=== PATIENT | male | born 1940 | race Caucasian/White ===

== ENCOUNTER 2019-10-18 07:30 | Day surgery (SDC) | payer MEDICARE, OTHER ==
--- NOTE | 2019-10-17 18:03 | HP ---
HISTORY AND PHYSICAL DATE OF SURGERY: 10/18/2019 Aston Colmenares is a 79-year-old patient seen with progressive right shoulder pain. We discussed options for treatment. He elected to proceed with arthroscopy. Consent was obtained. PAST MEDICAL HISTORY: Noncontributory. PAST SURGICAL HISTORY: Noncontributory. DAILY MEDICATIONS: None. ALLERGIES: NONE REPORTED. SOCIAL HISTORY: Denies current tobacco use. PHYSICAL EVALUATION OF THE RIGHT SHOULDER: Flexion 150 degrees, abduction 140 degrees. External rotation is 30 degrees with pain and weakness. There is tenderness along the anterolateral acromion and rotator cuff insertion site. Impingement sign is positive at 90 degrees. Drop-arm sign is positive. Distal neurovascular exam is intact. RIGHT SHOULDER RADIOGRAPHS: Right shoulder radiographs revealed a type 2 anterior acromion as well as acromioclavicular joint osteoarthritis. An MRI of the right shoulder revealed a massive retracted rotator cuff tendon tear as well as acromioclavicular joint osteoarthritis. IMPRESSION: 1. Right shoulder impingement with rotator cuff tear. 2. Right shoulder acromioclavicular joint osteoarthritis. PLAN: Right shoulder arthroscopy with subacromial decompression, arthroscopic rotator cuff repair, Nicholas procedure and debridement. MMODL / IJN: [id number] /
[~2019-10-18 07:30] MED LIST: DEXAMETHASONE SOD PHOSPHATE 10 MG/ML 1 ML VIAL IV ONE; HYDROmorphone 0.5 MG/0.5 ML SYRINGE IVP PRN; LIDOCAINE 1% 20 ML VIAL (10MG/ML) FOR IV START INTRADERMA PRN; MIDAZOLAM 2 MG/2 ML VIAL IV PRN; ONDANSETRON 4 MG/2 ML VIAL IVP ONE; fentaNYL (PF) 50 MCG/ML 2 ML AMP IVP PRN
[2019-10-18] MEDS: LACTATED RINGERS 1,000 ML IV SCH ×2 (07:51→09:24)
[2019-10-18 08:13] VITALS: TEMP 97.1
[2019-10-18 08:33] LABS: Basophils % (A) 0 %; Eosinophils # (A) 0.2 k/uL (0-0.7); Eosinophils % (A) 4 %; HCT 44.3 % (39.0-53.0); HGB 15.1 gm/dL (13.0-17.5); Lymphocytes % (A) 39 %; MCH 30.3 pg (25.0-35.0); MCHC 34.2 g/dL (31.0-37.0); MCV 88.8 fL (80.0-100.0); Mean Platelet Volume 6.9; Monocytes # (A) 0.4 k/uL (0-1.0); Monocytes % (A) 7 %; Neutrophils # (A) 2.5 k/uL (1.3-7.7); Neutrophils % (A) 47 %; Platelet Count 236 k/uL (150-450); RBC 4.99 m/uL (4.30-5.90); RDW 13.2 % (11.5-15.5); WBC 5.3 k/uL (3.8-10.6)
--- NOTE | 2019-10-18 08:42 | P.ANPRN ---
Procedure Note - Anesthesia - Nerve Block Performed Right Interscalene Single Time Out Performed: Yes Date of Procedure: 10/18/19 Procedure Start Time: Procedure Stop Time: Location of Patient: PreOp Indication: Acute Post-Operative Pain, Requested by Surgeon Sedation Type: Sedate with meaningful contact maintained Preparation: Sterile Prep Position: Supine Needle Types: Pajunk Needle Gauge: 21 Ultrasound used to visualize needle placement: Yes Ultrasound used to observe medication spread: Yes Blood Aspirated: No Pain Paresthesia on Injection Noted: No Resistance on Injection: Normal Image Stored and Saved: Yes Events: Uneventful and Well Tolerated (ropi .5% 30cc plus dexamethasone 4mg)
[2019-10-18] MEDS ORDERED: DEXAMETHASONE SOD PHOSPHATE 4 MG/ML 1 ML VIAL ONE (09:17)
[2019-10-18] MEDS ORDERED: LIDOCAINE 1% INJ 10MG/ML (20 ML MDV) ONE (09:17)
[2019-10-18] MEDS ORDERED: PROPOFOL 10 MG/ML 20 ML VIAL IV ONE (09:17)
[2019-10-18] MEDS ORDERED: ROPIVACAINE 5 MG/ML 30 ML VIAL ONE (09:17)
[2019-10-18] MEDS ORDERED: fentaNYL (PF) 50 MCG/ML 2 ML AMP ONE (09:17)
[2019-10-18] MEDS ORDERED: MIDAZOLAM 2 MG/2 ML VIAL ONE (09:17)
[2019-10-18] MEDS ORDERED: SUCCINYLCHOLINE CHLORIDE 100 MG/5 ML SYR IV ONE (09:17)
--- NOTE | 2019-10-18 11:49 | P.OP ---
Date of Procedure: 10/18/19 Preoperative Diagnosis: Right shoulder impingement Postoperative Diagnosis: 1. Right shoulder massive retracted rotator cuff tear 2. Right shoulder impingement 3. Right shoulder acromioclavicular joint osteoarthritis Procedure(s) Performed: 1. Right shoulder arthroscopic rotator cuff repair 2. Right shoulder arthroscopic subacromial decompression 3. Right shoulder arthroscopic Nicholas procedure Implants: 34.75 Arthrex swivel lock anchors Anesthesia: GETA, regional (Interscalene block) Surgeon: Stephan Arreola Coil Winder Repair #1: Gómez Hurd Estimated Blood Loss (ml): 11 Pathology: none sent Disposition: PACU Indications for Procedure: 79-year-old patient seen with progressive right shoulder pain. After treatment options were discussed, he elected to proceed with arthroscopy. Operative Findings: See description of procedure Description of Procedure: Patient underwent an interscalene block by department of anesthesia for postoperative pain management. The patient was then taken to the operative suite. The patient underwent a general anesthetic by the department of anesthesia. The patient was placed into a lateral position and secured. There was appropriate padding of the bony prominence. Right shoulder was then prepped and draped in normal sterile orthopedic fashion. We placed the extremity in 10 pounds of longitudinal traction. A posterior incision was now made for a posterior working portal site. The trocar and cannula were inserted into the glenohumeral joint. Arthroscopy was initiated. Spinal needle was now inserted anteriorly, to ascertain the anterior working portal site. An incision was now made in that area, a trocar was inserted followed by a probe. There was an obvious massive retracted rotator cuff tear could visualize from glenohumeral side. There were grade 2/3 chondromalacia changes of the superior aspect of the glenoid fossa. There was some fraying of the labrum but it was intact. The biceps tendon was absent. At this point instruments removed from glenohumeral joint. Utilizing the posterior working portal site, the trocar and cannula were inserted into the subacromial space. Arthroscopy initiated. I made an incision 2 fingerbreadths lateral to the acromion. I introduced my trocar followed by my ArthroCare ablator. I now began ablating thick subacromial bursal tissue, which exposed the undersurface of the anterior acromion. There was a massive retracted rotator cuff tear present. There was diminished subacromial space. There was a very prominent anterior acromion. A motorized bur was introduced and a subacromial decompression was performed. I also excised some osteophytes off the inferior aspect of the distal clavicle. The AC joint was visualized and noted to be fairly arthritic. The motorized bur was introduced in the anterior portal site and a Nicholas procedure was performed without difficulty, decompressing the AC joint nicely. I turned my attention to the rotator cuff. There was a 5 cm rotator cuff tear retracted well beyond the labrum. I began meticulously releasing the area. I could not get the tendon immobilizer over the footprint. I finally released synarthrosis able to get to the edge the f ootprint. I now abraded the footprint with a motorized bur. I now began performing a [id number] repair utilizing multiple interrupted sutures. I now passed 2 everted mattress sutures anteriorly, to everted mattress sutures posteriorly and 2 suture length centrally. I now punched a hole to repair the anterior portion of the tear. The 4 suture limbs were passed through an Arthrex 4.75 swivel lock anchor and it was introduced into the pre-punch hole. I held anchor position while Jarrell LEONARD tension the sutures and deployed the anchor. We now did the same to the posterior aspect of the repair utilizing one additional 4.75 anchor. I now repaired the central portion of the tear utilizing a 4.75 Arthrex swivel lock anchor. All residual suture limbs were clipped. We had good coverage anteriorly and posteriorly but centrally the tendon was just at the level footprint area that it appears stable to rotation. I injected 1 ml Renyte intra-articular. Instruments now removed from the portal sites. All portal sites were approximated with nylon suture. Sterile dressings were applied followed by a shoulder immobilizer. Gómez LEONARD assisted in this complex case. The patient was awakened, transferred to a bed, and taken to recovery in stable condition. His prognosis is guarded given the massive retracted tear he had.
[2019-10-18 13:24] VITALS: BP 147/87; PULSE 58; RESP 18
== END 2019-10-18 13:43 | disposition home or self-care (01) ==
LOC: OR 07:30
PROVIDERS: ATTEND Orthopaedic Surgery
DX: M75.121 Complete rotator cuff tear or rupture of right shoulder, not specified as traumatic (principal); M19.011 Primary osteoarthritis, right shoulder; M94.261 Chondromalacia, right knee; Z82.49 Family history of ischemic heart disease and other diseases of the circulatory system; Z87.891 Personal history of nicotine dependence
CPT/HCPCS: 64415; 76942; 85025; 29827; 29826; 29824; C1713 ×2; Q4212; J2250; J1100 ×2; J0690; J2405; J2001; J3010; J2795; J0330; J2704

== ENCOUNTER 2023-12-30 01:00 | Emergency (ER) | payer MEDICARE, OTHER ==
[2023-12-30 01:21] VITALS: RESP 18; TEMP 97.2
--- NOTE | 2023-12-30 01:29 | ED ---
Lower Extremity Injury HPI - General Chief Complaint: Extremity Injury, Lower Stated Complaint: HIP PAIN Time Seen by Provider: 12/30/23 01:06 Source: patient Mode of arrival: EMS Limitations: no limitations - History of Present Illness Initial Comments: 83-year-old male presenting with chief complaint of right-sided hip and back pain. He states that on Wednesday he was going down the stairs when he started to trip and grabbed onto the railing. He was able to catch himself but this did cause an abrupt jerking motion. He had some pain to the right hip and lower back area for the past 2 days, however this evening the pain was severe. States that he could not find a comfortable position. He has been taking Tylenol occasionally for his pain. No radiation of pain down the leg. No loss of bowel or bladder control or saddle paresthesia. No fevers or chills. No dysuria, hematuria, urgency, frequency. - Related Data Previous Rx's Medication Instructions Recorded HYDROcodone/APAP 7.5-325MG [[place] 1 each PO Q6HR PRN #15 tab 10/18/19 7.5] Lidocaine 5% Patch [Lidoderm 5% 1 patch TOPICAL DAILY PRN #30 patch 12/30/23 Patch] Allergies Allergy/AdvReac Type Severity Reaction Status Date / Time No Known Allergies Allergy Verified 12/30/23 01:06 Review of Systems ROS Statement: Those systems with pertinent positive or pertinent negative responses have been documented in the HPI. ROS Other: All systems not noted in ROS Statement are negative. Past Medical History Past Medical History: Cancer Additional Past Medical History / Comment(s): BASAL, SEVERAL SITES History of Any Multi-Drug Resistant Organisms: None Reported Past Surgical History: Tonsillectomy Additional Past Surgical History / Comment(s): RECONSTRUCTION OF RIGHT EAR (BASAL CANCER). REMOVAL OF BASAL RIGHT ARM (DEEP). Past Anesthesia/Blood Transfusion Reactions: No Reported Reaction Past Psychological History: No Psychological Hx Reported Smoking Status: Former smoker Past Alcohol Use History: Rare Past Drug Use History: None Reported - Past Family History Mother Family Medical History: No Reported History General Exam Limitations: no limitations General appearance: alert, in no apparent distress Head exam: Present: atraumatic, normocephalic Eye exam: Present: normal appearance Neck exam: Present: normal inspection Respiratory exam: Absent: respiratory distress Cardiovascular Exam: Present: regular rate Right Hip exam: Present: normal inspection Back exam: Present: normal inspection, tenderness Neurological exam: Present: alert, oriented X3 Psychiatric exam: Present: normal affect, normal mood Skin exam: Present: warm, dry Course Vital Signs 12/30/23 12/30/23 01:01 02:10 Temperature 97.2 F L Pulse Rate 74 62 Respiratory 18 18 Rate Blood Pressure 163/87 144/80 O2 Sat by Pulse 99 94 L Oximetry Medical Decision Making - Medical Decision Making Was pt. sent in by a medical professional or institution (, PA, BOARD ATTENDANT, urgent care, hospital, or assisted...) When possible be specific @ -No Did you speak to anyone other than the patient for history (EMS, parent, family, police, friend...)? What history was obtained from this source @ -No Did you review nursing and triage notes (agree or disagree)? Why? @ -I reviewed and agree with nursing and triage notes Were old charts reviewed (outside hosp., previous admission, EMS record, old EKG, old radiological studies, urgent care reports/EKG's, assisted records)? Report findings @ -No old charts were reviewed Differential Diagnosis (chest pain, altered mental status, abdominal pain women, abdominal pain men, vaginal bleeding, weakness, fever, dyspnea, syncope, hea dache, dizziness, GI bleed, back pain, seizure, CVA, palpatations, mental health, musculoskeletal)? @ - [facility] Differential Back Pain: Strain, zoster, cauda equina syndrome, epidural abscess, vertebral osteomyelitis, discitis, fracture, subluxation, disc herniation, DJD, spinal stenosis, dissection, AAA, pancreatitis, peptic ulcer disease, pyelonephritis, kidney stone this is not meant to be an all-inclusive list. EKG interpreted by me (3pts min.). @ -As above X-rays interpreted by me (1pt min.). @ -Lumbar spine x-ray shows age-indeterminate mild superior plate wedging of L2. Calcified ectatic aorta measuring 2.8 cm. X-ray of the right hip and pelvis shows no acute findings CT interpreted by me (1pt min.). @ -None done U/S interpreted by me (1pt. min.). @ -None done What testing was considered but not performed or refused? (CT, X-rays, U/S, labs)? Why? @ -None What meds were considered but not given or refused? Why? @ -None Did you discuss the management of the patient with other professionals (professionals i.e. , PA, BOARD ATTENDANT, lab, RT, psych nurse, forensic social worker, window shade estimator, teacher, hydrographical technical officer, lining caser)? Give summary @ -No Was smoking cessation discussed for >3mins.? @ -No Was critical care preformed (if so, how long)? @ -No Were there social determinants of health that impacted care today? How? (Homelessness, low income, unemployed, alcoholism, drug addiction, transportation, low edu. Level, literacy, decrease access to med. care, assisted, rehab)? @ -No Was there de-escalation of care discussed even if they declined (Discuss DNR or withdrawal of care, Hospice)? DNR status @ -No What co-morbidities impacted this encounter? (DM, HTN, Smoking, COPD, CAD, Cancer, CVA, ARF, Chemo, Hep., AIDS, mental health diagnosis, sleep apnea, morbid obesity)? @ -None Was patient admitted / discharged? Hospital course, mention meds given and route, prescriptions, significant lab abnormalities, going to OR and other pertinent info. @ -83-year-old male presenting with chief complaint of right-sided lower back and hip pain. Pain has been ongoing for a few days after he strained his back. No red flag symptoms. History and physical exam are conducted. X-rays positive for compression fracture of L2. Urine shows no infectious process, there is a trace blood however the patient is having no urinary symptoms. Patient is given Tylenol, lidocaine patch, Norflex. On reassessment he states that his pain has improved to a 1 out of 10. He is educated on today's findings. Instructed to follow-up with orthopedics and provided with referrals for orthopedic spine surgeon. Educated on alarm symptoms that should prompt reevaluation. Discharged home. Follow-up with PCP. Report back to ER with any new or worsening symptoms. Discussed return parameters and answered all questions. Patient conveyed verbal understanding and agreed to the plan. I discussed this case in detail with my attending Dr. Almonte Undiagnosed new problem with uncertain prognosis? @ -No Drug Therapy requiring intensive monitoring for toxicity (Heparin, Nitro, Insulin, Cardizem)? @ -No Were any procedures done? @ -No Diagnosis/symptom? @ -Compression fracture of L2 Acute, or Chronic, or Acute on Chronic? @ -Acute Uncomplicated (without systemic symptoms) or Complicated (systemic symptoms)? @ -Uncomplicated Side effects of treatment? @ -No Exacerbation, Progression, or Severe Exacerbation? @ -No Poses a threat to life or bodily function? How? (Chest pain, USA, DC, pneumonia, PE, COPD, DKA, ARF, appy, cholecystitis, CVA, Diverticulitis, Homicidal, Suicidal, threat to staff... and all critical care pts) @ -No - Lab Data Lab Results 12/30/23 Range/Units 02:30 Urine Color Colorless Urine Appearance Clear (Clear) Urine pH 5.5 (5.0-8.0) Ur Specific Camilla 1.016 (1.001-1.035) Urine Protein Negative (Negative) Urine Glucose (UA) Negative (Negative) Urine Ketones Negative (Negative) Urine Blood Trace H (Negative) Urine Nitrite Negative (Negative) Urine Bilirubin Negative (Negative) Urine Urobilinogen <2.0 (<2.0) mg/dL Ur Leukocyte Esterase Negative (Negative) Urine RBC 2 (0-5) /hpf Urine WBC 1 (0-5) /hpf Urine Mucus Rare H (None) /hpf Disposition Clinical Impression: Compression fracture of L2 Disposition: HOME SELF-CARE Condition: Fair Instructions (If sedation given, give patient instructions): Vertebral Compression Fracture (ED) Additional Instructions: Follow-up with PCP and orthopedics. Report back to ER with any new or worsening symptoms. Prescriptions: Lidocaine 5% Patch [Lidoderm 5% Patch] 1 patch TOPICAL DAILY PRN #30 patch PRN Reason: Pain Is patient prescribed a controlled substance at d/c from ED?: No Referrals: Viet Dominique [Primary Care Provider] - 1-2 days Jack Lopez DO [Doctor of Osteopathic Medicine] - 1-2 days Antwon Infante DO [Doctor of Osteopathic Medicine] - 1-2 days Time of Disposition: 03:10
[2023-12-30] MEDS: LIDOCAINE 4% PATCH TOPICAL ONE (01:45)
[2023-12-30] MEDS: ACETAMINOPHEN TAB 500 MG TAB PO STA (01:47)
[2023-12-30] MEDS: ORPHENADRINE 30 MG/ML 2 ML VIAL IM STA (01:47)
--- NOTE | 2023-12-30 02:20 | XR ---
EXAM: XR Lumbosacral Spine, 2 or 3 Views CLINICAL HISTORY: ITS.REASON XR Reason: injury TECHNIQUE: Frontal and lateral views of the lumbar spine and sacrum. COMPARISON: No relevant prior studies available. FINDINGS: Vertebrae: Age-indeterminate mild superior plate wedging of L2. Mild levoscoliosis Disc spaces: Severe disc height loss at L1-L2. Soft tissues: Calcified ectatic aorta measuring 2.8 cm. IMPRESSION: Age-indeterminate mild superior plate wedging of L2. Calcified ectatic aorta measuring 2.8 cm.
--- NOTE | 2023-12-30 02:23 | XR ---
EXAM: XR Pelvis CLINICAL HISTORY: ITS.REASON XR Reason: injury TECHNIQUE: Frontal views of the pelvis. COMPARISON: No relevant prior studies available. FINDINGS: Bones/joints: No acute fracture. No dislocation. Soft tissues: Unremarkable. IMPRESSION: No acute findings.
[2023-12-30 02:27] VITALS: BP 144/80; PULSE 62
[2023-12-30 02:54] LABS: Appearance,Urine Clear (Clear); Bilirubin,Urine Negative (Negative); Blood,Urine Trace (Negative); Color,Urine Colorless; Glucose,Urine (UA) Negative (Negative); Ketones,Urine Negative (Negative); Leukocyte Esterase,Urine Negative (Negative); Mucus,Urine Rare /hpf; Nitrite,Urine Negative (Negative); PH, Urine 5.5 (5.0-8.0); Protein,Urine Negative (Negative); RBC,Urine 2 /hpf (0-5); Specific Gravity,Urine 1.016 (1.001-1.035); Urobilinogen,Urine <2.0 mg/dL (<2.0); WBC,Urine 1 /hpf (0-5)
[2023-12-30] MEDS: ACET/COD 300 MG/30 MG STARTER PACK 6 TAB BTL PO STA (03:18)
== END 2023-12-30 03:29 | disposition home or self-care (01) ==
LOC: EC 01:00
DX: S32.020A Wedge compression fracture of second lumbar vertebra, initial encounter for closed fracture (principal); Z87.891 Personal history of nicotine dependence; W10.8XXA Fall (on) (from) other stairs and steps, initial encounter
CPT/HCPCS: 81001; 72100; 73502; 99284; 96372; J2360

== ENCOUNTER 2024-02-06 09:10 | Emergency (ER) | payer MEDICARE, OTHER ==
[2024-02-06 09:55] VITALS: RESP 18; TEMP 98
--- NOTE | 2024-02-06 10:40 | ED ---
Neck Injury/Pain HPI - General Chief Complaint: Neck Pain/Injury Stated Complaint: neck pain Time Seen by Provider: 02/06/24 09:56 Source: patient, RN notes reviewed Mode of arrival: ambulatory Limitations: no limitations - History of Present Illness Initial Comments: This is an 83-year-old male who presents to the emergency department for neck pain. Symptoms started about 3 days ago. He did recently injure his lower back, and has since been sleeping differently, and wonders if that may have caused it. Otherwise denies any injuries related to the neck. He is taking Tylenol #3 without any relief in symptoms. States that he is having difficulty turning his head. MD Complaint: neck pain - Related Data Previous Rx's Medication Instructions Recorded HYDROcodone/APAP 7.5-325MG [[place] 1 each PO Q6HR PRN #15 tab 10/18/19 7.5] Lidocaine 5% Patch [Lidoderm 5% 1 patch TOPICAL DAILY PRN #30 patch 12/30/23 Patch] Meloxicam [Mobic] 15 mg PO DAILY PRN #20 tab 02/06/24 methocarbamoL [Robaxin-750] 1,500 mg PO TID PRN #30 tab 02/06/24 Allergies Allergy/AdvReac Type Severity Reaction Status Date / Time No Known Allergies Allergy Verified 02/06/24 09:52 Review of Systems ROS Statement: Those systems with pertinent positive or pertinent negative responses have been documented in the HPI. ROS Other: All systems not noted in ROS Statement are negative. Past Medical History Past Medical History: Cancer Additional Past Medical History / Comment(s): BASAL, SEVERAL SITES History of Any Multi-Drug Resistant Organisms: None Reported Past Surgical History: Tonsillectomy Additional Past Surgical History / Comment(s): RECONSTRUCTION OF RIGHT EAR (BASAL CANCER). REMOVAL OF BASAL RIGHT ARM (DEEP). Past Anesthesia/Blood Transfusion Reactions: No Reported Reaction Past Psychological History: No Psychological Hx Reported Smoking Status: Former smoker Past Alcohol Use History: Rare Past Drug Use History: None Reported - Past Family History Mother Family Medical History: No Reported History General Exam Limitations: no limitations General appearance: alert, in no apparent distress Head exam: Present: atraumatic, normocephalic, normal inspection ENT exam: Present: other (Tenderness to palpation over the posterior cervical spine and lateral neck muscles. No deformities. Range of motion limited by pain.) Respiratory exam: Present: normal lung sounds bilaterally. Absent: respiratory distress, wheezes, rales, rhonchi, stridor Cardiovascular Exam: Present: regular rate, normal rhythm, normal heart sounds. Absent: systolic murmur, diastolic murmur, rubs, gallop, clicks Neurological exam: Present: alert, oriented X3, CN II-XII intact Psychiatric exam: Present: normal affect, normal mood Skin exam: Present: warm, dry, intact, normal color. Absent: rash Course Vital Signs 02/06/24 02/06/24 02/06/24 09:50 11:18 12:00 Temperature 98 F Pulse Rate 72 68 72 Respiratory 18 18 18 Rate Blood Pressure 150/90 139/71 136/73 O2 Sat by Pulse 96 97 Oximetry Medical Decision Making - Medical Decision Making This is an 83 year old male who presents to the emergency department for neck pain. Was pt. sent in by a medical professional or institution? @ -No Did you speak to anyone other than the patient for history? @ -No Did you review nursing and triage notes? @ -Yes, and I agree, it is accurate with regards to the patient's symptoms. Were old charts reviewed? @ -No Differential Diagnosis? @ -Differential Neck Pain: Fracture, dislocation, contusion, strain, DDD, disc herniation, this is not meant to be an all-inclusive list. EKG interpreted by me (3pts min.)? @ -Not obtained X-rays interpreted by me (1pt min.)? @ -X-ray of the cervical spine obtained. My interpretation identifies no acute fractures. CT interpreted by me (1pt min.)? @ -Not obtained U/S interpreted by me (1pt. min.)? @ -Not obtained What testing was considered but not performed? (CT, X-rays, U/S, labs)? Why? @ -None What meds were considered but not given? Why? @ -None Did you discuss the management of the patient with other professionals? @ -No Did you reconcile home meds? @ -No Was smoking cessation discussed for >3mins.? @ -No Was critical care preformed (if so, how long)? @ -No Were there social determinants of health that impacted care today? How? (Homelessness, low income, unemployed, alcoholism, drug addiction, transportation, low edu. Level, literacy, decrease access to med. care, fdc, rehab)? @ -No Was there de-escalation of care discussed even if they declined? (Discuss DNR or withdrawal of care, Hospice)? @ -No What co-morbidities impacted this encounter? (DM, HTN, Smoking, COPD, CAD, Cancer, CVA, Hep., AIDS, mental health diagnosis, sleep apnea, morbid obesity)? @ -None Was patient admitted / discharged? @ -Discharged. X-ray of the cervical spine demonstrates moderate degenerative changes without acute process. Symptoms well-controlled in the emergency department. Symptoms likely related to a cervical strain given the changes in sleeping position and difficulty turning his head. Prescription for Mobic and Robaxin provided with dosing instructions reviewed. Also advised warm moist heat and follow-up with his primary care provider. Undiagnosed new problem with uncertain prognosis? @ -None Drug Therapy requiring intensive monitoring for toxicity (Heparin, Nitro, Insulin, Cardizem)? @ -None Were any procedures done? @ -None Diagnosis/symptom? @ -Cervical strain Acute, or Chronic, or Acute on Chronic? @ -Acute Uncomplicated (without systemic symptoms) or Complicated (systemic symptoms)? @ -Uncomplicated Side effects of treatment? @ -None Exacerbation, Progression, or Severe Exacerbation] @ -Not applicable Poses a threat to life or bodily function? @ -No Return precautions reviewed in depth, the patient is instructed to return to the emergency department with any new, worsening, or concerning symptoms. Patient verbalized understanding. This case was discussed in detail with the attending ED physician, Dr. Nicholson. Presentation, findings, and treatment plan discussed in detail as well. - Radiology Data Radiology results: report reviewed, image reviewed Disposition Clinical Impression: Strain of neck muscle Disposition: HOME SELF-CARE Instructions (If sedation given, give patient instructions): Cervical Strain (ED) Additional Instructions: Return to the emergency department with any new, worsening, or concerning symptoms. Take the Mobic once daily for pain relief. Take this with Tylenol. Do not take any other anti-inflammatories such as ibuprofen with this. Take the Robaxin as 1 to 2 tablets up to 3-4 times daily. Be aware that the Robaxin may make you drowsy. You can also try applying warm moist heat. Follow up with your primary care provider in 1-2 days. Prescriptions: Meloxicam [Mobic] 15 mg PO DAILY PRN #20 tab PRN Reason: Pain methocarbamoL [Robaxin-750] 1,500 mg PO TID PRN #30 tab PRN Reason: Pain Is patient prescribed a controlled substance at d/c from ED?: No Referrals: Viet Dominique [Primary Care Provider] - 1-2 days Time of Disposition: 11:45
[2024-02-06] MEDS: KETOROLAC 15 MG/ML 1 ML VIAL IVP STA (10:51)
[2024-02-06] MEDS: ORPHENADRINE 30 MG/ML 2 ML VIAL IVP STA (10:52)
[2024-02-06] MEDS: MORPHINE SULFATE 2 MG/ML SYRINGE IVP STA ×2 (10:54→12:12)
[2024-02-06] MEDS: DEXAMETHASONE SOD PHOSPHATE 10 MG/ML 1 ML VIAL IVP STA (10:56)
--- NOTE | 2024-02-06 11:16 | XR ---
EXAMINATION TYPE: XR cervical spine comp DATE OF EXAM: 02/06/2024 11:08 AM CLINICAL INDICATION:Male, 83 years old with history of pain; COMPARISON: None TECHNIQUE: The cervical spine was imaged in frontal, lateral, odontoid and bilateral oblique. FINDINGS: The osseous structures show normal alignment without evidence of an acute fracture. There are osteoph ytes noted throughout the cervical spine on the anterior and lateral aspects of the vertebral bodies. The intervertebral disk spaces are narrowed at multiple levels. Pedicles are intact. Soft tissues a re within normal limits. The odontoid appears intact. 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 IMPRESSION: 1. No fracture or dislocation. 2. 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
[2024-02-06 12:31] VITALS: BP 136/73; PULSE 72
== END 2024-02-06 12:21 | disposition home or self-care (01) ==
LOC: EC 09:10
DX: S16.1XXA Strain of muscle, fascia and tendon at neck level, initial encounter (principal); Z87.891 Personal history of nicotine dependence; X58.XXXA Exposure to other specified factors, initial encounter
CPT/HCPCS: 72050; 99284; 96374; 96375 ×3; 96376; J1100; J2360; J2270; J1885

== ENCOUNTER → 2025-02-13 | Outpatient (CLI) | payer MEDICARE, OTHER | LOC: CPPFTMAIN 10:40 | PROVIDERS: ATTEND Pediatrics | DX: R06.00 Dyspnea, unspecified (principal); Z87.891 Personal history of nicotine dependence | CPT/HCPCS: 94060; 94726; 94729 ==